=== PATIENT | female | born 1990 | race Caucasian/White ===

== ENCOUNTER 2017-03-30 04:55 | Observation (INO) | payer OTHER ==
[2017-03-30 07:22] LABS: HEMOGLOBIN 13.8 gm/dl (12.3-15.3); RED BLOOD COUNT 4.55 M/UL (4.00-5.10); WHITE BLOOD COUNT 9.6 K/UL (4.5-11.0)
[2017-03-30 07:57] LABS: BUN/CREATININE RATIO 4 (0-10)
[2017-03-30 15:20] LABS: BUN/CREATININE RATIO 8 (0-10)
== END 2017-03-30 16:00 | disposition home or self-care (01) ==
LOC: ER1 04:55 → ZEROF 08:47
PROVIDERS: Student in an Organized Health Care Education/Training Program; ADMIT Internal Medicine
DX: R11.2 Nausea with vomiting, unspecified (principal); E86.0 Dehydration; F19.10 Other psychoactive substance abuse, uncomplicated; N17.9 Acute kidney failure, unspecified; K02.9 Dental caries, unspecified; F17.210 Nicotine dependence, cigarettes, uncomplicated
CPT/HCPCS: 36415; 80048; 80053; 80307; 81001; 82550; 83690; 84703; 85025; 89050; 93005; 96374; 96375; 99285; G0378; G0480; J2405; J7030